=== PATIENT | female | born 1985 | race Two or more races ===

== ENCOUNTER → 2019-07-20 | Emergency (ER) | payer OTHER, BC ==
[~2019-07-20] MED LIST: ONDANSETRON (ODT) 4 MG TAB ODT
[2019-07-20] MEDS: ONDANSETRON 4 MG INJ IV (15:13)
[2019-07-20] MEDS: SOD CHLORIDE 0.9% 1,000 ML IV (15:13)
[2019-07-20 15:42] LABS: ALANINE AMINOTRANSFERASE 32 IU/L (13-69); ALBUMIN 3.8 g/dl (3.3-4.9); ALBUMIN/GLOBULIN RATIO 1.22; ALKALINE PHOSPHATASE 48 IU/L (42-121); ANION GAP 8 (5-13); ASPARTATE AMINO TRANSFERASE 22 IU/L (15-46); BILIRUBIN,INDIRECT 0.3 mg/dl (0-1.1); BILIRUBIN,TOTAL 0.3 mg/dl (0.2-1.3); BLOOD UREA NITROGEN 9 mg/dl (7-20); CALCIUM 9.6 mg/dl (8.4-10.2); CARBON DIOXIDE 24 mmol/L (21-31); CHLORIDE 103 mmol/L (97-110); Estimated GFR > 60 mL/min (>60); GLUCOSE 94 mg/dl (70-220); POTASSIUM 4.1 mmol/L (3.5-5.1); SODIUM 135 mmol/L (135-144); TOTAL PROTEIN 6.9 g/dl (6.1-8.1)
== END | disposition home or self-care (01) ==
LOC: FTE 12:58
DX: O21.0 Mild hyperemesis gravidarum (principal); Z3A.10 10 weeks gestation of pregnancy
CPT/HCPCS: 80053; 96361; 96374; 99284-25